=== PATIENT | male | born 1990 | race Caucasian/White ===

== ENCOUNTER 2022-11-14 05:08 | Emergency (ER) | payer OTHER ==
[~2022-11-14] VITALS: Ht 180.3 cm; Wt 87.2 kg
[2022-11-14 05:20] VITALS: BP 134/92
--- NOTE | 2022-11-14 05:25 | NUR ---
PT TO BED
[2022-11-14 05:59] LABS: BASOPHILS # (AUTO) 0.1 K/uL (0.00-0.22); BASOPHILS % (AUTO) 0.5 % (0.0-2.0); EOSINOPHILS # (AUTO) 0.1 K/uL (0-0.4); EOSINOPHILS % (AUTO) 1.4 % (0.0-4.0); HEMATOCRIT 50.6 % (36-52); HEMOGLOBIN 17.4 g/dL (12.0-18.0); LYMPHOCYTES # (AUTO) 2.2 K/uL (2.0-11.5); LYMPHOCYTES % (AUTO) 23.8 % (20.5-51.1); MEAN CORPUSCULAR HEMOGLOBIN 30 pg (27-31); MEAN CORPUSCULAR HGB CONC 34 g/dL (33-37); MEAN CORPUSCULAR VOLUME 86.9 fL (80-94); MONOCYTES # (AUTO) 0.7 K/uL (0.8-1.0); MONOCYTES % (AUTO) 7.5 % (1.7-9.3); NEUTROPHILS # (AUTO) 6.3 K/uL (1.8-7.7); NEUTROPHILS % (AUTO) 66.8 % (42.2-75.2); PLATELET COUNT (AUTO) 278 K/uL (140-450); RED BLOOD CELL COUNT(AUTO) 5.83 MIL/uL (4.20-6.10); RED CELL DISTRIBUTION WIDTH 12.9 % (11.6-13.7); WHITE BLOOD COUNT (AUTO) 9.4 K/uL (4.8-10.8)
[2022-11-14] MEDS ORDERED: ONDANSETRON 4 MG/2 ML VIAL IVP ONE (06:25)
[2022-11-14] MEDS ORDERED: NACL 0.9% 1,000 ML IV ONE (06:25)
[2022-11-14 06:29] LABS: ANION GAP 12.7 (8-16); CARBON DIOXIDE 28.3 mmol/L (21-32); CREATININE 1.2 mg/dL (0.6-1.3)
[2022-11-14 06:46] LABS: ALBUMIN 4.2 g/dL (3.4-5.0); TOTAL BILIRUBIN 0.4 mg/dL (0.0-1.0)
--- NOTE | 2022-11-14 07:20 | NUR ---
Report recieved from TONO Yost for transfer of care.
--- NOTE | 2022-11-14 07:31 | NUR ---
Patient being re-evaluated by Dr. Aranda at bedside.
[2022-11-14] MEDS ORDERED: ONDA-188 SL (07:40)
[2022-11-14] MEDS ORDERED: IBUP-2213 PO (07:40)
[2022-11-14] MEDS ORDERED: LOPE1TAB14 PO (07:40)
[2022-11-14 08:11] VITALS: BP 129/87
--- NOTE | 2022-11-14 08:11 | NUR ---
Patient discharged with v/s stable. Written and verbal after care instructions given. Patient alert, oriented and verbalized understanding of instructions. Ambulatory with steady gait. All questions addressed prior to discharge. ID band removed. Patient advised to follow up with PMD. Rx of Ibuprofen, Imodium, Zofran given. Opportunity to ask questions provided and answered. WORK NOTE HANDED TO PATIENT.
--- NOTE | 2022-11-14 08:12 | NUR ---
The patient's care was reviewed and supervised by Talita Hall, RN, RN.
== END 2022-11-14 08:11 | disposition home or self-care (01) ==
LOC: MED 05:08
DX: R11.2 Nausea with vomiting, unspecified (principal); R10.84 Generalized abdominal pain; R19.7 Diarrhea, unspecified; E11.65 Type 2 diabetes mellitus with hyperglycemia; Z79.4 Long term (current) use of insulin; Z79.899 Other long term (current) drug therapy
CPT/HCPCS: 36415; 80053; 83690; 85025; 96361; 96374; 99283; J2405